=== PATIENT | female | born 1990 | race Caucasian/White ===

== ENCOUNTER 2017-12-18 22:36 | Emergency (ER) | payer OTHER ==
[2017-12-18] MEDS ORDERED: PREDNISONE 20 MG TABLET PO ONE (22:43)
[2017-12-18] MEDS ORDERED: IPRATROPIUM/ALBUTEROL 0.5-2.5 MG/3 ML AMPUL NEB ONE (22:43)
[2017-12-18] MEDS ORDERED: ALBUTEROL SULFATE 0.083% NEB 2.5 MG/3 ML AMPUL NEB SCH (22:58)
[2017-12-18] MEDS ORDERED: ALBUTEROL SULFATE HFA (90 MCG/PUFF) 8 GM MDI (1 MDI/ER DISP) IH PRN (23:49)
--- NOTE | 2017-12-18 23:52 | ER Document Report ---
ED General - General Chief Complaint: Asthma Exacerbation Stated Complaint: DIFFICULTY BREATHING Time Seen by Provider: 12/18/17 23:42 Notes: Patient is a 27-year-old female with a past medical history of asthma, one prior hospitalization but no prior intubations who presents with an acute asthma exacerbation. Patient reports that she has been doing with shortness of breath throughout the day today, got very bad news and began to have a panic attack. She reports that she would use her albuterol inhaler but it was out of medication. She states that she feels like this progressively worsened her symptoms so she came to the emergency department for treatment. At time of my assessment she has received a nebulizer therapy and notes that she overall feels much improved at this time. He is that the recent weather changes have worsened or triggered her symptoms. She has not seen her primary care doctor regarding today's concerns. She denies any chest pain, fever, headache, neck pain or syncope. TRAVEL OUTSIDE OF THE [place] IN LAST 30 DAYS: No - Related Data Allergies/Adverse Reactions: No Known Allergies Allergy (Verified 09/17/16 11:20) Past Medical History - General Information source: Patient - Social History Smoking Status: Current Some Day Smoker Frequency of alcohol use: None Drug Abuse: None Lives with: Alone Family History: Reviewed & Not Pertinent Patient has suicidal ideation: No Patient has homicidal ideation: No Pulmonary Medical History: Reports: Hx Asthma, Hx Bronchitis Neurological Medical History: Reports: Hx Migraine Renal/ Medical History: Denies: Hx Peritoneal Dialysis Musculoskeltal Medical History: Reports Hx Musculoskeletal Trauma Psychiatric Medical History: Reports: Hx Depression - PTSD, anxiety, Hx Post Traumatic Stress Disorder - Immunizations Hx Diphtheria, Pertussis, Tetanus Vaccination: Yes Review of Systems - Review of Systems Notes: Constitutional: Negative for fever. HENT: Negative for sore throat. Eyes: Negative for visual changes. Cardiovascular: Negative for chest pain. Respiratory: Positive for shortness of breath. Gastrointestinal: Negative for abdominal pain, vomiting or diarrhea. Genitourinary: Negative for dysuria. Musculoskeletal: Negative for back pain. Skin: Negative for rash. Neurological: Negative for headaches, weakness or numbness. 10 point ROS negative except as marked above and in HPI. Physical Exam - Vital signs Vitals: Temp Pulse Resp BP Pulse Ox 97.6 F 81 28 H 136/83 H 100 12/18/17 22:44 12/18/17 22:44 12/18/17 22:44 12/18/17 22:44 12/18/17 22:44 Interpretation: Tachypneic Notes: PHYSICAL EXAMINATION: GENERAL: Well-appearing, well-nourished and in no acute distress. HEAD: Atraumatic, normocephalic. EYES: Pupils equal round and reactive to light, extraocular movements intact, sclera anicteric, conjunctiva are normal. ENT: nares patent, oropharynx clear without exudates. Moist mucous membranes. NECK: Normal range of motion, supple without lymphadenopathy LUNGS: Breath sounds clear to auscultation bilaterally and equal. Faint end expiratory wheezing HEART: Regular rate and rhythm without murmurs ABDOMEN: Soft, nontender, normoactive bowel sounds. No guarding, no rebound. No masses appreciated. EXTREMITIES: Normal range of motion, no pitting or edema. No cyanosis. NEUROLOGICAL: No focal neurological deficits. Moves all extremities spontaneously and on command. PSYCH: Normal mood, normal affect. SKIN: Warm, Dry, normal turgor, no rashes or lesions noted. Course - Re-evaluation Re-evalutation: 12/18/17 23:49 Patient presents with a mild exacerbation of their baseline asthma. Mild wheezing at time of presentation but vitals do not show significant hypoxemia or tachypnea. No retractions. Patient did clinically improve after receiving nebulizers here in the emergency department. Chest x-ray without evidence of an acute pneumonia. Patient able to ambulate without any respiratory distress. Based on patient's overall reassuring assessment, I believe they are stable for outpatient management with steroids. I do not suspect an acute alternative pathology at this time based on history and exam including acute pulmonary embolus, ACS, pneumothorax, or aortic dissection. At this time will discharge with return precautions and follow-up recommendations. Verbal discharge instructions given a the bedside and opportunity for questions given. Medication warnings reviewed. Patient is in agreement with this plan and has verbalized understanding of return precautions and the need for primary care follow-up in the next 24-72 hours. - Vital Signs Vital signs: Temp Pulse Resp BP Pulse Ox 97.6 F 81 28 H 109/64 97 12/18/17 22:44 12/18/17 22:44 12/18/17 22:44 12/19/17 01:01 12/19/17 01:01 - Diagnostic Test Radiology reviewed: Image reviewed, Reports reviewed Radiology results interpreted by me: 12/18/17 23:50 Chest x-ray: No acute infiltrate or pneumothorax Discharge - Discharge Clinical Impression: Asthma exacerbation Qualifiers: Asthma severity: mild Asthma persistence: persistent Qualified Code(s): J45.31 - Mild persistent asthma with (acute) exacerbation Condition: Good Disposition: HOME, SELF-CARE Additional Instructions: You were seen for an asthma exacerbation. Your symptoms improved with treatment here in the emergency department. However, it is very important that you return to the emergency department immediately if you began to have worsening difficulty breathing that does not respond to your normal home nebulizers. You are also being sent home on a five-day course of steroids that you should start taking tomorrow. Please also follow closely with your primary care physician. you should also return to emergency department if you develop fever greater than 101, persistent cough, persistent vomiting, pass out, or any other symptoms that are concerning to you. Prescriptions: Prednisone [Deltasone 20 mg Tablet] 3 tab PO DAILY 5 Days tablet
--- NOTE | 2017-12-19 00:45 | RADIOLOGY REPORT (SQ) ---
EXAM DESCRIPTION: CHEST SINGLE VIEW CLINICAL HISTORY: 27 years, Female, sob COMPARISON: May 04, 2014 NUMBER OF VIEWS: 1 FINDINGS: Normal lung volume, clear parenchyma, normal cardiac silhouette, and intact bony thorax. IMPRESSION: No acute cardiopulmonary findings.
[2017-12-19 01:16] VITALS: BP 109/64
== END 2017-12-19 01:20 | disposition home or self-care (01) ==
LOC: ER 22:36
DX: J45.31 Mild persistent asthma with (acute) exacerbation (principal); F17.200 Nicotine dependence, unspecified, uncomplicated
CPT/HCPCS: 94640; 99285; 71045; J7512; J3490; J7620

== ENCOUNTER 2019-03-19 11:40 | Emergency (ER) | payer OTHER ==
[2019-03-19 11:47] VITALS: BP 109/61
--- NOTE | 2019-03-19 11:48 | ER Document Report ---
HPI - HPI Patient complains to provider of: right eye irritation Time Seen by Provider: 03/19/19 11:48 Onset: Other - friday Quality of pain: Achy Severity: Severe Pain Level: 4 Context: Patient presents emergency department with complaints of right eye irritation discharge. [facility] Patient remembers that they treated her with Cipro. She reports the symptoms are getting worse. She also reports she has a migraine now because of it. Reports that she does wear contacts and possibly 1 of her dogs hit her in the eye with their paw. She complains of discharge matting to the eye. reports symptoms started in the right eye. Now reports same symptoms to the left eye. [facility] but was [facility] here because they did not have a slit lamp. Reports she is very sensitive to light. She also has removed contacts and did not bring her glasses with her. Denies other symptoms such as fever vomiting diarrhea. Associated Symptoms: None Exacerbated by: Other - light Relieved by: Denies Similar symptoms previously: Yes Recently seen / treated by doctor: Yes - REPRODUCTIVE Reproductive: DENIES: : Past Medical History - General Information source: Patient - Social History Smoking Status: Unknown if Ever Smoked Frequency of alcohol use: None Drug Abuse: None Lives with: Alone Family History: Reviewed & Not Pertinent Patient has suicidal ideation: No Patient has homicidal ideation: No Pulmonary Medical History: Reports: Hx Asthma, Hx Bronchitis Neurological Medical History: Reports: Hx Migraine Renal/ Medical History: Denies: Hx Peritoneal Dialysis Musculoskeletal Medical History: Reports Hx Musculoskeletal Trauma Psychiatric Medical History: Reports: Hx Depression - PTSD, anxiety, Hx Post Traumatic Stress Disorder Surgical Hx: Negative - Immunizations Hx Diphtheria, Pertussis, Tetanus Vaccination: Yes Vertical Provider Document - CONSTITUTIONAL Agree With Documented VS: Yes Exam Limitations: No Limitations General Appearance: WD/WN, No Apparent Distress - INFECTION CONTROL TRAVEL OUTSIDE OF THE [place] IN LAST 30 DAYS: No - HEENT HEENT: Atraumatic, Conjuctival Injection, Normocephalic, PERRLA - NECK Neck: Supple - RESPIRATORY Respiratory: No Respiratory Distress - CARDIOVASCULAR Cardiovascular: Regular Rate - MUSCULOSKELETAL/EXTREMETIES Musculoskeletal/Extremeties: MAEW, FROM - NEURO Level of Consciousness: Awake, Alert Motor/Sensory: No Motor Deficit - DERM Integumentary: Warm, Dry Course - Re-evaluation Re-evalutation: 03/19/19 12:17 Conjunctivae with erythema and clear drainage from both eyes. Patient reported immediate relief of irritation after tetracaine was applied. Patient does not remember what type of antibiotic eyedrops she was given. She reports she has not reapplied her contacts since Friday. Patient was instructed on erythromycin. She remembered that she [facility]. We discussed possibly of reaction to the Cipro. We also discussed possibly something else going on. She will utilize erythromycin as discussed. She was strongly encouraged to return to the emergency department should her symptoms become worse or she starts having any pain or vision disturbances. She verbalized understanding. She also is instructed to not utilize her contacts until follow-up with ophthalmology. She reports the [facility] will [facility] since her discharge instructions indica te she needs a follow-up with ophthalmology. Dictation of this chart was performed using voice recognition software; therefore, there may be some unintended grammatical errors. - Vital Signs Vital signs: Temp Pulse Resp BP Pulse Ox 98.0 F 77 16 109/61 100 03/19/19 11:43 03/19/19 11:43 03/19/19 11:43 03/19/19 11:43 03/19/19 11:43 Procedures - Eye Procedure Bilateral Eye Irrigated w/ Saline (ccs): 30 Alcaine Drops Administered: Yes - tetracaine Fluorescein applied: Bilateral Antibiotic Oinment/Drps Admin: Both eyes Slit lamp used: No Eyes picture: 1 - erythremia to both eyes with clear drainage, right worse than left no fluroscein uptake noted Discharge - Discharge Clinical Impression: Irritation of both eyes, Bacterial conjunctivitis Condition: Stable Disposition: HOME, SELF-CARE Instructions: Conjunctivitis ([facility]), Erythromycin ([facility]), Opthalmology Additional Instructions: *You have been evaluated for eye irritation, bacterial conjunctivitis *Use eye ointment as prescribed half-inch ribbon to the lower lids of both eyes 4 times a day for the next 4 to 5 days Do not insert contacts *Good hand washing- Do not reuse wash clothes or towels after wiping eyes *Follow up with an insurance checker within 1 week. *Return to ED for worsening condition, changes, needs, worsening symptoms concerns. Forms: Return to Work Referrals: [facility] [Primary [facility] Provider] - Follow up in 3-5 days
[2019-03-19] MEDS ORDERED: IBUPROFEN 800 MG TABLET PO ONE (11:58)
[2019-03-19] MEDS ORDERED: TETRACAINE HCL 0.5% OPH SOLN 4 ML OS ONE (11:58)
[2019-03-19] MEDS ORDERED: ERYTHROMYCIN 0.5% OPH OINT 1 GM UNIT DOSE OU ONE (12:18)
== END 2019-03-19 12:37 | disposition home or self-care (01) ==
LOC: ER 11:40
DX: H10.89 Other conjunctivitis (principal)
CPT/HCPCS: 99282; J3490